=== PATIENT | female | born 1945 | race Caucasian/White ===

== ENCOUNTER → 2018-05-17 | Outpatient (CLI) | payer MEDICARE | LOC: M WHC 13:35 | DX: Z12.31 Encounter for screening mammogram for malignant neoplasm of breast (principal); Z78.0 Asymptomatic menopausal state; Z98.890 Other specified postprocedural states | CPT/HCPCS: 77067 ==

== ENCOUNTER → 2019-07-26 | Outpatient (CLI) | payer MEDICARE ==
[~2019-07-26] MED LIST: ASPI81TA83 OR; ATEN25TA OR; CALCIUM+D; CEPACOL PO; COLA100C2 OR; CRES40TA OR; DRISDOL PO; ESTRACE CREAM EC; FOSAMAX PO; LISI10TA4 OR; METFORMIN PO; MULTLIQ7 PO; PAXI40TA OR; PERC5TAB8 OR; VITA500C OR; VITAMIN D PO; ZANA2CAP OR; ZEST20TA4 OR
--- NOTE | 2019-07-26 12:36 | REPMRS ---
Patient History The patient states she had a clinical breast exam in 07/2019. No known family history of cancer. Benign excisional biopsy of the left breast, 1997. No Hormone Replacement Therapy Digital Woman Screen Mammo: July 26, 2019 - Exam #: [id number] Bilateral CC and MLO view(s) were taken. Technologist: Imani Lagos, Technologist Prior study comparison: May 17, 2018, bilateral digital woman screen mammo performed at [facility]. May 20, 2016, digital woman screen mammo performed at [facility]. January 23, 2015, digital woman screen mammo performed at [facility]. FINDINGS: There are scattered fibroglandular densities. There has been no change in the appearance of the mammogram from the prior studies. There is a mild amount of scattered fibroglandular density which is fairly symmetric. There is no interval development of dominant mass, architectural distortion, or grouped microcalcification suggestive of malignancy. 3-D tomosynthesis shows no additional findings. Assessment: BI-RADS/ACR category 1 mammogram. Negative Mammogram. Recommendation Routine screening mammogram of both breasts in 1 year (for women over age 40). This patient's Lifetime Breast Cancer Risk is estimated at 4.7 %. This mammogram was interpreted with the aid of an FDA-approved computer-aided dectection system. Electronically Signed By: Abilio Quintanilla MD 07/26/19 6024
== END ==
LOC: M WHC 11:14
PROVIDERS: ATTEND Registered Nurse Diabetes Educator
DX: Z01.419 Encounter for gynecological examination (general) (routine) without abnormal findings (principal); Z12.31 Encounter for screening mammogram for malignant neoplasm of breast; Z86.018 Personal history of other benign neoplasm
CPT/HCPCS: 77063; 77067; G0101

== ENCOUNTER → 2021-01-09 | Outpatient (CLI) | payer MEDICARE | LOC: M WHC 13:05 | PROVIDERS: ATTEND Nurse Practitioner Family | DX: Z12.31 Encounter for screening mammogram for malignant neoplasm of breast (principal); M81.0 Age-related osteoporosis without current pathological fracture ==

== ENCOUNTER → 2022-02-04 | Outpatient (CLI) | payer MEDICARE | LOC: M WHC 10:34 | PROVIDERS: ATTEND Nurse Practitioner Family | DX: Z12.31 Encounter for screening mammogram for malignant neoplasm of breast (principal) ==

== ENCOUNTER → 2023-04-26 | Outpatient (CLI) | payer MEDICARE | LOC: M WHC 10:51 | PROVIDERS: ATTEND Nurse Practitioner Family | DX: Z12.31 Encounter for screening mammogram for malignant neoplasm of breast (principal); M81.0 Age-related osteoporosis without current pathological fracture ==

== ENCOUNTER → 2024-05-21 | Outpatient (CLI) | payer MEDICARE | LOC: M WHC 11:05 | PROVIDERS: ATTEND Nurse Practitioner Family | DX: Z12.31 Encounter for screening mammogram for malignant neoplasm of breast (principal); R92.333 Mammographic heterogeneous density, bilateral breasts ==